=== PATIENT | female | born 1975 | race Two or more races ===

== ENCOUNTER 2024-10-26 14:42 | Emergency (ER) | payer MEDICAID ==
[~2024-10-26] VITALS: Ht 167.6 cm; Wt 57.0 kg
[2024-10-26 14:55] VITALS: TEMP 36.9; O2SAT 99
[2024-10-26] MEDS ORDERED: ALBU18HF2 IH (17:05)
[2024-10-26 17:33] VITALS: BP 135/82; PULSE 95; RESP 15; O2SAT 99
== END 2024-10-26 17:37 | disposition home or self-care (01) ==
LOC: ER 14:42
DX: R05.8 Other specified cough (principal); R07.0 Pain in throat
CPT/HCPCS: 71045; 99283